=== PATIENT | male | born 1940 | race Caucasian/White ===

== ENCOUNTER 2017-06-12 19:14 | Emergency (ER) | payer OTHER, MEDICARE ==
--- NOTE | ~2017-06-12 | ER ---
PATIENT'S NAME: PAULO WAY [facility] AGE: 76 Y [address] ROOM: [place] [id number] LOCATION: [facility] ADMIT DATE: 06/12/2017 ER/Outpatient Report DISCHARGE DATE: 06/12/2017 FAMILY PHYSICIAN: Physician, Unknown ATTENDING PHYSICIAN: Jimmie Acosta Time of Arrival: 1914 hours. Time of Evaluation: 1916 hours. CHIEF COMPLAINT: Injuries from fall. HISTORY OF PRESENT ILLNESS: This is a 76-year-old male who presents to the ER via [facility] Unit crew. The patient is a resident of [facility]. He was with a staff member, holding onto his walker, apparently he fell backward, hitting his head on the wall. He did not lose consciousness. He has had no nausea or vomiting. He did sustain abrasion to the posterior scalp and they state he has no other injury. The patient does have a history of dementia and he is at his normal baseline. ALLERGIES: NO KNOWN ALLERGIES. MEDICATIONS: Please see medication list nurse's notes. PAST MEDICAL HISTORY: 1. 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 2. COPD. 3. History of dementia with aphasia. 4. Hypercholesterolemia. 5. Type 2 diabetes. SOCIAL HISTORY: Lives at [facility]. He is currently on hospice since November of this year. REVIEW OF SYSTEMS: All systems reviewed and were negative with the exception of those in the HPI and this is taken from the family and nursing staff at [facility] due to the patient being a poor historian. PHYSICAL EXAMINATION: VITAL SIGNS: Blood pressure is 142/83, pulse 74, respirations 16, temperature PATIENT'S NAME: PAULO WAY [facility] AGE: 76 Y [address] ROOM: [place], [place] [address] LOCATION: [facility] ADMIT DATE: 06/12/2017 ER/Outpatient Report DISCHARGE DATE: 06/12/2017 FAMILY PHYSICIAN: Physician, Unknown ATTENDING PHYSICIAN: Jimmie Acosta 98.7 degrees tympanically, and saturations 93% on room air. Eboni Coma Score is 15. GENERAL: Alert, calm, well-developed, 76-year-old, in no acute distress. HEENT: Head: Normocephalic. Eyes: Pupils are equal and reactive to light. He does display moist mucous membranes. Ears: TMs display good light reflexes bilaterally. LUNGS: Clear to auscultation bilaterally. HEART: Regular rate and rhythm. ABDOMEN: Soft. It is nontender. He has good bowel sounds throughout. EXTREMITIES: No clubbing or cyanosis. He does have a little bit of weakness in his left lower extremity, but he is able to pick it up and hold it and this is normal weakness for him. SKIN: He has a small abrasion noted to the posterior scalp. It is not actively bleeding at this time. LABORATORY DATA AND X-RAYS: Labs, none were done. CT scan of the head and C-spine were done. He has degenerative changes at C3-C4 and C4-C5. No acute fracture. His head CT shows no skull fracture, but he does have questionable residual tumor with some edema around that area. They recommend further MRI if clinically necessary. IMPRESSION: Head injury from ground level fall. ASSESSMENT AND PLAN: I did discuss the patient's finding with the patient's son and granddaughter. They state that he is currently on hospice and they are not wishing for any further workup done on his tumor. I did notify [facility] as well and also spoke with Dr. Martínez. We will dismiss the patient back to the snf. They may ice any sore areas. I gave his Tylenol dosing per his medication record written by his primary care physician. They need to continue to monitor him and follow up with their primary care physician if needed. The patient's family understands and agrees with care. POPPY SCHWARTZ PA-C FOR [employer] [facility]/elif /[id number] d: 06/13/17 0039 t: 06/20/17 1110, OUTPATIENT REPORT
== END 2017-06-12 20:44 | disposition disaster alternative care site (69) ==
LOC: GACC 19:14
DX: S09.90XA Unspecified injury of head, initial encounter (principal); E11.9 Type 2 diabetes mellitus without complications; J44.9 Chronic obstructive pulmonary disease, unspecified; E78.00 Pure hypercholesterolemia, unspecified; F03.90 Unspecified dementia, unspecified severity, without behavioral disturbance, psychotic disturbance, mood disturbance, and anxiety; R47.01 Aphasia; M47.812 Spondylosis without myelopathy or radiculopathy, cervical region; Z85.841 Personal history of malignant neoplasm of brain; Z79.891 Long term (current) use of opiate analgesic; Z79.52 Long term (current) use of systemic steroids; Z79.899 Other long term (current) drug therapy; W18.00XA Striking against unspecified object with subsequent fall, initial encounter; Y92.129 Unspecified place in nursing home as the place of occurrence of the external cause

== ENCOUNTER → 2017-06-12 | Outpatient (CLI) | payer OTHER, MEDICARE ==
[~2017-06-12] MED LIST: **HUMALOG*100 UNIT/M SUB-Q; ASPIRIN EC81 MG PO; DECADRON4 MG PO; DULERA 200 MCG/51 EA INH; GLUCOPHAGE850 MG PO; HYDROCHLOROTH12.5 MG PO; HYDRODIURIL12.5 MG PO; KEPPRA500 MG PO; PROVENTIL OR V6.7 GM INH; SPIRIVA HANDIHA1 KIT INH; SYMBICORT 16010.2 GM INH; TENORMIN25 MG PO; THERA-VITE W/ B1 TAB PO; TYLENOL325 MG PO; VITAMIN D-32000 UNI1 PO; ZESTRIL40 MG PO; ZOCOR80 MG PO
== END | disposition disaster alternative care site (69) ==
LOC: GAMB 19:01
DX: S09.90XA Unspecified injury of head, initial encounter (principal); F03.90 Unspecified dementia, unspecified severity, without behavioral disturbance, psychotic disturbance, mood disturbance, and anxiety; E11.9 Type 2 diabetes mellitus without complications; E78.5 Hyperlipidemia, unspecified; G89.11 Acute pain due to trauma; Z79.891 Long term (current) use of opiate analgesic; Z79.899 Other long term (current) drug therapy
CPT/HCPCS: A0425; A0429

== ENCOUNTER 2017-06-13 09:51 | Emergency (ER) | payer OTHER, MEDICARE ==
--- NOTE | ~2017-06-13 | ER ---
PATIENT'S NAME: PALUO WAY [facility] AGE: 76 Y [address] ROOM: [place], [place] [address] LOCATION: [facility] ADMIT DATE: 06/13/2017 ER/Outpatient Report DISCHARGE DATE: FAMILY PHYSICIAN: Kourtney Collado MD ATTENDING PHYSICIAN: Mendez Aguilar CHIEF COMPLAINT: Possible left shoulder pain and deformity. HISTORY OF PRESENT ILLNESS: Mr. Way was referred here by his hospice nurse. He is a resident at [facility]. By a collective report from all available individuals, the patient has had 2 falls in the last 24 hours. After the first fall, he was brought to the emergency department where he was seen and evaluated by Dr. Acosta, received a head CT, found no acute problems, and family has elected hospice care regarding his known intracranial tumor. The patient appeared to be doing well and was sent back to the facility. Near as I can tell, he had another fall last night which was less concerning and was evaluated this morning by the hospice nurse, who thought it maybe he was having some more pain on the left side of the shoulder and there was maybe a deformity and thus, she recommended ER evaluation for possible fracture. The patient has no specific complaints, but is a very poor historian secondary to his dementia. He is currently on hospice care. The daughter, Mackenzie also confirms that they would not want further aggressive cares beyond that which we are offering at this time. No other acute history associated with the patient at this time. Per daughter and Hospice Care, the patient does not use his left side very much at all and in fact, usually has his left arm in a sling. PAST MEDICAL HISTORY: Documented in the record and reviewed by me. SOCIAL HISTORY: Documented in the record and reviewed by me. MEDICATIONS: Documented in the record and reviewed by me. ALLERGIES: DOCUMENTED IN THE RECORD AND REVIEWED BY ME. REVIEW OF SYSTEMS: All systems reviewed and negative except as noted in the HPI. PHYSICAL EXAMINATION: VITAL SIGNS: Blood pressure 180/81, pulse 103, respiratory rate is PATIENT'S NAME: PAULO WAY [facility] AGE: 76 Y [address] ROOM: [place], [place] [address] LOCATION: [facility] ADMIT DATE: 06/13/2017 ER/Outpatient Report DISCHARGE DATE: FAMILY PHYSICIAN: Kourtney Collado MD ATTENDING PHYSICIAN: Mendez Aguilar temperature is 97.4, and SpO2 is 92% on room air. GENERAL: Age-appropriate male. Upright on the exam table, in no apparent pain or distress. NEUROLOGIC: The patient is awake, he is confused. He gets short, but appropriate answers intermittently. He does not have significant strength in the left upper extremity, although he may intermittently squeeze the left hand. On right-side, follows commands in the upper and lower extremities. He has no obvious deformities of the shoulder. No palpable deformities and is not particularly painful on range of motion exercise, but it is limited secondary to unclear etiology. It does not appear to be uncomfortable for the patient. SKIN: Appears grossly intact with a small recent laceration on the left posterior scalp. LABORATORY DATA AND IMAGING STUDIES: Labs and X-rays: Plain films of the left shoulder were obtained and unremarkable per my review. IMPRESSION: Concern for left shoulder pain. EMERGENCY DEPARTMENT COURSE: The patient was seen and evaluated. After discussion with Randi from hospice and the patient's daughter Mackenzie, we just evaluated the patient's shoulder. No fractures or dislocations detectable on my exam. The neurological status appears to be at baseline. We will recommend return to [facility]. Symptom management per [facility]osp[facility]. All questions were answered to the best of my ability. Daughter was notified and the patient was discharged back to [facility] in good condition. MD FRANSISCA FREITAS/elif /[id number] d: 06/13/17 1230 t: 06/24/17 0620, OUTPATIENT REPORT
== END 2017-06-13 11:33 | disposition disaster alternative care site (69) ==
LOC: GACC 09:51
DX: M25.512 Pain in left shoulder (principal); Z79.52 Long term (current) use of systemic steroids; Z79.891 Long term (current) use of opiate analgesic; Z79.899 Other long term (current) drug therapy; W18.39XA Other fall on same level, initial encounter